=== PATIENT | male | born 1950 | race Caucasian/White ===

== ENCOUNTER 2018-09-11 14:06 | Inpatient (IN) | payer MEDICARE, SELFPAY ==
--- NOTE | 2018-09-11 14:35 | PCM.HP.STD ---
Problem List (1) Acute hyperactive opioid withdrawal delirium Status: Acute (2) Cocaine use disorder Status: Acute (3) Nicotine dependence, cigarettes, with withdrawal Status: Chronic History of Present Illness Date of Admission: 09/11/18 Chief Complaint: Opioid withdrawal syndrome The patient is a 68 year old M with history of chronic heroin use and dependence is being directly admitted through [facility] for medical stabilization of withdrawal syndrome. Patient is having hot and cold sensation, tremors and shaking, nasal congestion. Denies abdominal pain, diarrhea. Patient has chronic lumbar disc degeneration status post lumbar spine fusion. Patient also had left knee replacement, right leg pain surgery mostly after fracture in the past. He denies IV use of substance use including heroin or fentanyl. Denies history of incision and drainage. He has history of rheumatic fever at the childhood and has heart murmur. Past Medical History Past Medical History (Chronic Problems): Chronic Problems Nicotine dependence, cigarettes, with withdrawal (Chronic) Home Medications: Ambulatory Orders Medication Instructions Recorded NK 09/11/18 - *Family History Paternal History Items: Hypertension Review of Systems Constitutional: Reports: Chills, Weakness, Fatigue HEENT: Reports: Nasal Congestion. Denies: Head Aches, Sinus Congestion, Sinus Drainage Cardiovascular: Denies: Chest Pain, Palpitations Respiratory: Denies: Cough, Shortness of breath at rest, Sputum production Gastrointestinal: Reports: Nausea. Denies: Abdominal Pain, Vomiting Genitourinary: Denies: Dysuria Musculoskeletal: Reports: Back Pain, Muscle pain. Denies: Joint Pain, Joint Tenderness Skin: Denies: Rash, Wounds Neurological: Denies: Numbness, Tingling, Focal weakness Psychiatric: Reports: Anxiety. Denies: Depression, Homicidal Ideations, Suicidal Ideations Hematologic/ Lymphatic: Denies: Easy Bruising, Easy Bleeding VTE Information - Inpt Only VTE Present on Admission: No VTE Pharm Prophylaxis ordered?: Yes Patient Problems: Active and Suspected Problems Acute hyperactive opioid withdrawal delirium (Acute) Cocaine use disorder (Acute) - Physical Exam General: Alert, Oriented x3, Cooperative HEENT: Atraumatic, PERRLA, EOMI, Normocephalic Oral: Dry Mucosa Neck: Supple, No JVD, Negative Carotid Bruits Lungs: Clear to auscultation, No rhonchi, No wheeze, No rales, Diminished - Air entry is diminished Cardiovascular: Regular rate, Regular Rhythm, Normal S1, Normal S2, Murmur - Systolic and diastolic murmur present over mitral valve. Possible mitral stenosis plus mitral regurgitation Abdomen: Bowel Sounds Present, Soft, Non Tender, Non-Distended Extremities: No edema, Capillary Refill Less than 3 Seconds Skin: No rashes, No breakdown Musculoskeletal: No Tenderness to Palpation of Joints or Extremities, Arthritic Changes Lymphatic: No Cervical, Supraclavicular, or Inguinal Adenopathy Neurological: Cranial nerves II-XII grossly intact, Deep Tendon Reflexes 2+/4 and Symmetrical, Neuro grossly intact Psych/Mental Status: Normal Affect, Appropriate Assessment/Plan All Active Problems Acute hyperactive opioid withdrawal delirium (Acute) Cocaine use disorder (Acute) The patient is a 68 year old M with history of chronic heroin use and dependence is being directly admitted through [facility] for medical stabilization of withdrawal syndrome. Patient is having hot and cold sensation, tremors and shaking, nasal congestion. Denies abdominal pain, diarrhea. Patient has chronic lumbar disc degeneration status post lumbar spine fusion. Patient also had left knee replacement, right leg pain surgery mostly after fracture in the past. He denies IV use of substance use including heroin or fentanyl. Denies history of incision and drainage. He has history of rheumatic fever at the childhood and has heart murmur. 1. Acute opioid withdrawal secondary to heroin use and dependence: Patient claims using heroin 1 leave by snorting. Denies history of hepatitis C or HIV. Patient is being admitted by transfer. [facility] orders set for medical stabilization ordered. Labs ordered. 2. Cocaine use and dependence: Patient uses half grams cocaine, twice a month. Last use was 3 days ago 3. Chronic smoker 3. Chronic cigarette smoker with nicotine dependence: Patient smokes 5-6 cigarettes daily since age of 14. Denies history of COPD or chronic cough. 4. History of alcohol use in the past: Quit drinking alcohol in 2009 used to whiskey 1/5 of the bottle, started at age of 14. 5. Rheumatic heart disease: Patient has systolic and diastolic murmur over mitral area suggestive of possible mitral stenosis with regurgitation. We will need formal 2D echo as an outpatient for further evaluation. Currently, he is not symptomatic with shortness of breath or chest pain or features of heart failure. 6. Chronic lumbar disc degenerative disorder with left knee arthritis status post TKR: Stable. DVT prophylaxis: On Lovenox 40 subcu daily Code Visit Inpatient E&M: [id number] Init Hosp L3
[2018-09-11 14:39] VITALS: RESP 18; BMI 26.4
--- NOTE | 2018-09-11 14:40 | HP.PCM_ITS ---
Problem List (1) Acute hyperactive opioid withdrawal delirium Status: Acute (2) Cocaine use disorder Status: Acute (3) Nicotine dependence, cigarettes, with withdrawal Status: Chronic History of Present Illness Date of Admission: 09/11/18 Chief Complaint: Opioid withdrawal syndrome The patient is a 68 year old M with history of chronic heroin use and dependence is being directly admitted through [facility] for medical stabilization of withdrawal syndrome. Patient is having hot and cold sensation, tremors and shaking, nasal congestion. Denies abdominal pain, diarrhea. Patient has chronic lumbar disc degeneration status post lumbar spine fusion. Patient also had left knee replacement, right leg pain surgery mostly after fracture in the past. He denies IV use of substance use including heroin or fentanyl. Denies history of incision and drainage. He has history of rheumatic fever at the childhood and has heart murmur. Past Medical History Past Medical History (Chronic Problems): Chronic Problems Nicotine dependence, cigarettes, with withdrawal (Chronic) Home Medications: Ambulatory Orders Medication Instructions Recorded NK 09/11/18 - *Family History Paternal History Items: Hypertension Review of Systems Constitutional: Reports: Chills, Weakness, Fatigue HEENT: Reports: Nasal Congestion. Denies: Head Aches, Sinus Congestion, Sinus Drainage Cardiovascular: Denies: Chest Pain, Palpitations Respiratory: Denies: Cough, Shortness of breath at rest, Sputum production Gastrointestinal: Reports: Nausea. Denies: Abdominal Pain, Vomiting Genitourinary: Denies: Dysuria Musculoskeletal: Reports: Back Pain, Muscle pain. Denies: Joint Pain, Joint Tenderness Skin: Denies: Rash, Wounds Neurological: Denies: Numbness, Tingling, Focal weakness Psychiatric: Reports: Anxiety. Denies: Depression, Homicidal Ideations, Suicidal Ideations Hematologic/ Lymphatic: Denies: Easy Bruising, Easy Bleeding VTE Information - Inpt Only VTE Present on Admission: No VTE Pharm Prophylaxis ordered?: Yes Patient Problems: Active and Suspected Problems Acute hyperactive opioid withdrawal delirium (Acute) Cocaine use disorder (Acute) - Physical Exam General: Alert, Oriented x3, Cooperative HEENT: Atraumatic, PERRLA, EOMI, Normocephalic Oral: Dry Mucosa Neck: Supple, No JVD, Negative Carotid Bruits Lungs: Clear to auscultation, No rhonchi, No wheeze, No rales, Diminished - Air entry is diminished Cardiovascular: Regular rate, Regular Rhythm, Normal S1, Normal S2, Murmur - Systolic and diastolic murmur present over mitral valve. Possible mitral stenosis plus mitral regurgitation Abdomen: Bowel Sounds Present, Soft, Non Tender, Non-Distended Extremities: No edema, Capillary Refill Less than 3 Seconds Skin: No rashes, No breakdown Musculoskeletal: No Tenderness to Palpation of Joints or Extremities, Arthritic Changes Lymphatic: No Cervical, Supraclavicular, or Inguinal Adenopathy Neurological: Cranial nerves II-XII grossly intact, Deep Tendon Reflexes 2+/4 and Symmetrical, Neuro grossly intact Psych/Mental Status: Normal Affect, Appropriate Assessment/Plan All Active Problems Acute hyperactive opioid withdrawal delirium (Acute) Cocaine use disorder (Acute) The patient is a 68 year old M with history of chronic heroin use and dependence is being directly admitted through [facility] for medical stabilization of withdrawal syndrome. Patient is having hot and cold sensation, tremors and shaking, nasal congestion. Denies abdominal pain, diarrhea. Patient has chronic lumbar disc degeneration status post lumbar spine fusion. Patient also had left knee replacement, right leg pain surgery mostly after fracture in the past. He denies IV use of substance use including heroin or fentanyl. Denies history of incision and drainage. He has history of rheumatic fever at the childhood and has heart murmur. 1. Acute opioid withdrawal secondary to heroin use and dependence: Patient claims using heroin 1 leave by snorting. Denies history of hepatitis C or HIV. Patient is being admitted by transfer. [facility] orders set for medical stabilization ordered. Labs ordered. 2. Cocaine use and dependence: Patient uses half grams cocaine, twice a month. Last use was 3 days ago 3. Chronic smoker 3. Chronic cigarette smoker with nicotine dependence: Patient smokes 5-6 cigarettes daily since age of 14. Denies history of COPD or chronic cough. 4. History of alcohol use in the past: Quit drinking alcohol in 2009 used to whiskey 1/5 of the bottle, started at age of 14. 5. Rheumatic heart disease: Patient has systolic and diastolic murmur over mitral area suggestive of possible mitral stenosis with regurgitation. We will need formal 2D echo as an outpatient for further evaluation. Currently, he is not symptomatic with shortness of breath or chest pain or features of heart failure. 6. Chronic lumbar disc degenerative disorder with left knee arthritis status post TKR: Stable. DVT prophylaxis: On Lovenox 40 subcu daily Code Visit Inpatient E&M: 56394 Init Hosp L3
[2018-09-11 15:00] VITALS: BP 157/79; PULSE 53; RESP 16; TEMP 36.9
[2018-09-11] MEDS: chlordiazePOXIDE 25 MG Capsule PO ×3 (15:11→22:09)
[2018-09-11] MEDS: Buprenorphine HCl 2 MG TAB.SUBL 4 MG SL (16:08)
[2018-09-11 16:11] LABS: Absolute Lymphocyte Count 2.18 X10^3/ul (0.83-4.51); Absolute Neutrophil Count 6.4 X10^3/uL (2.0-7.7); Basophil# 0.07 X10^3/uL; Basophil% 0.7 % (0-1); Eosinophil# 1.16 X10^3/uL; Eosinophils% 11.3 % (0-5); Hematocrit 43.2 % (40-54); Lymphocyte # 2.18 X10^3/ul (4.0); Lymphocyte % 21.1 % (19-41); Mean Corp Hgb Conc 32.4 g/gl (32-36); Mean Corpuscular Hgb 27.8 pg (27.0-32.0); Mean Corpuscular Volume 85.7 fL (80-94); Monocyte# 0.46 X10^3/uL; Monocyte% 4.5 % (0-10); Neutrophil # 6.42 X10^3/uL (2.7-7.7); Neutrophil % 62.2 % (47-70); Platelet Count 411 K/mm3 (150-450); RBC Distribution Width SD 46.8 fl (35.1-43.9); Red Blood Count 5.04 M/mm3 (4.6-6.2); White Blood Count 10.3 K/mm3 (4.4-11.0)
[2018-09-11 16:13] LABS: POSITIVE COUNT NO; POSITIVE DIFFERENTIAL NO; POSITIVE MORPHOLOGY NO
[2018-09-11 16:16] LABS: ALB/GLOB Ratio 0.9 RATIO (0.9-2.4); AST(SGOT) 18 U/L (15-37); Alanine Aminotransfer ALT/SGPT 22 U/L (16-61); Albumin, Serum 3.8 g/dL (3.2-5.0); Alkaline Phosphatase 93 U/L (45-117); Amylase 34 U/L (25-115); Anion Gap 5 (5-15); BUN 13 mg/dL (7-18); BUN/Creat Ratio 12.1 RATIO (10-20); Chloride 105 mmol/L (98-107); Creatinine, Serum 1.07 mg/dL (0.70-1.30); EST Glomerular Filtration Rate 73 mL/min (>60); Est Glom Filt Rate - Afr Amer 88 mL/min (>60); Estimated Creatinine Clearance 71.52 ml/min; Globulin 4.1 g/dL (2.2-4.2); Glucose 141 mg/dL (74-106); Lipase 115 U/L (73-393); Protein, Total 7.9 g/dL (6.4-8.2); Sodium Level 137 mmol/L (136-145)
--- NOTE | 2018-09-11 16:32 | NEWVISION ---
Patient has appointment at [facility] post discharge scheduled on 09/23/18 @ 3:30pm. Patient transportation upon D/C is being provided by his daughter Kaila, .
[2018-09-11] MEDS: Pramipexole Di-HCl 0.25 MG Tablet PO (17:07)
[2018-09-11] MEDS: Ibuprofen 600 MG Tablet PO (17:07)
[2018-09-11] MEDS: Methocarbamol 750 MG Tablet PO ×2 (17:08→23:56)
[2018-09-11 17:19] LABS: Alcohol, Blood (Medical)-Serum < 3.0 mg/dL
[2018-09-11 17:31] LABS: Bacteria 0 SEEN /hpf (None Seen); Mucous, Urine 0 SEEN /hpf (<or=2+); Red Blood Cells-Urine 0 SEEN /hpf (0-5); Squamous Epithelial Cells - UA 0 SEEN /hpf (0-5)
[2018-09-11 17:32] LABS: Color, Urine Yellow (Yellow); Glucose, Dipstick Normal (Normal); Ketone-Dipstick Negative (Negative); Leukocyte Esterase-Dipstick 25 /ul (Negative); Nitrite-Dipstick Negative (Negative); Occult Blood-Urine Negative /ul (Negative); Protein-Dipstick 15 mg/dl (Negative); Urine Bilirubin Dipstick Negative (Negative); Urine Clarity Clear (Clear); Urine Urobilinogen Normal (Normal)
[2018-09-11] MEDS: Enoxaparin 40 MG/0.4 ML Syringe SC (17:40)
[2018-09-11] MEDS: cloNIDine HCl 0.1 MG Tablet PO (17:44)
[2018-09-11] MEDS: hydrOXYzine PAM 25 MG Capsule 50 MG PO ×2 (17:44→23:56)
[2018-09-11 17:48] LABS: White Blood Cells 0-5 SEEN /hpf (0-5)
[2018-09-11 18:00] VITALS: BP 134/82; PULSE 59; RESP 18; TEMP 36.8
[2018-09-11 20:29] VITALS: BP 116/66; PULSE 57; RESP 20; TEMP 36.7
[2018-09-11] MEDS: Acetaminophen 500 MG Tablet PO (20:39)
[2018-09-11] MEDS: Mag Hydrox/Al Hydrox/Simeth 30 ML UDC PO (20:39)
[2018-09-11] MEDS: Ondansetron ODT 4 MG Tablet PO (20:39)
[2018-09-11] MEDS: Dicyclomine 10 MG Capsule 20 MG PO (20:39)
[2018-09-11] MEDS: hydrOXYzine 50 MG/ML Vial IM (20:40)
[2018-09-11] MEDS: QUEtiapine 25 MG Tablet PO (20:40)
[2018-09-11] MEDS: traZODone 50 MG Tablet PO (22:10)
[2018-09-11 23:54] VITALS: BP 146/58; PULSE 51; RESP 18; TEMP 36.4
[2018-09-11] MEDS: Buprenorphine HCl 2 MG TAB.SUBL SL (23:56)
[2018-09-12 02:59] VITALS: BP 120/73; PULSE 53; RESP 16; TEMP 36.6
[2018-09-12] MEDS: QUEtiapine 25 MG Tablet PO (03:01)
[2018-09-12] MEDS: Mag Hydrox/Al Hydrox/Simeth 30 ML UDC PO (03:01)
[2018-09-12] MEDS: chlordiazePOXIDE 25 MG Capsule PO ×3 (03:01→10:23)
[2018-09-12 06:02] VITALS: BP 105/61; PULSE 47; RESP 16; TEMP 36.4
[2018-09-12] MEDS: hydrOXYzine PAM 25 MG Capsule 50 MG PO (06:03)
[2018-09-12] MEDS: Pramipexole Di-HCl 0.25 MG Tablet PO (06:03)
--- NOTE | 2018-09-12 08:45 | PCM.PROGNOTE ---
Patient Problems: Active and Suspected Problems Acute hyperactive opioid withdrawal delirium (Acute) Cocaine use disorder (Acute) Subjective: The patient is a 68-year-old male with history of opioid dependence and cocaine abuse who was admitted to the [facility] at [facility] on 09/11/2018 for medical stabilization for acute withdrawal from heroin. Past medical history is significant for rheumatic fever as a child, chronic lumbar disc degeneration with lumbar fusion, chronic R leg pain after a fracture and tobacco dependence. All events of the past 24 hours been reviewed. He has been afebrile since admission Vital signs are stable. He is bradycardic All labs personally reviewed. Random glucose is high at 141. He started using heroin about 1 year ago when his orthopedic doctor would no longer prescribe him Vicodin or Percocet. Admits to snorting 0.5 GM of heroin at night. He has no PCP. He has no plan for what he is going to do at [place]. When I asked him how he is going to manage his pain he had no idea but did tell me that Tylenol and Motrin does not even take care of a BOLTON. Has never been in rehab before. - Physical Exam General: Alert, Oriented x3, Cooperative, No apparent distress, Well developed, Well nourished HEENT: Atraumatic, PERRLA, Normocephalic Oral: Moist Mucosa Neck: Supple, No JVD, Negative Carotid Bruits Lungs: Clear to auscultation, Diminished Cardiovascular: Regular rate, Regular Rhythm, Normal S1, Normal S2, Murmur, No Gallop Abdomen: Bowel Sounds Present, Soft, Non Tender, Non-Distended Extremities: No clubbing, No cyanosis, No edema Skin: No rashes, No breakdown Neurological: Cranial nerves II-XII grossly intact, Neuro grossly intact Psych/Mental Status: Appropriate, Flat Affect Vital Signs Temp Pulse Resp BP 97.6 F L 47 L 16 105/61 09/12/18 06:02 09/12/18 06:02 09/12/18 06:02 09/12/18 06:02 Oxygen Delivery Method Room Air Weight: 195 lb Body Mass Index (BMI) 26.4 Intake and Output for Last 24 Hours 09/10/18 09/11/18 09/12/18 23:59 23:59 23:59 Intake Total 1100 / 1100 200 / 200 Balance 1100 / 1100 200 / 200 Laboratory Tests Past 24 Hrs 09/11/18 09/11/18 09/11/18 15:30 15:50 15:50 WBC 10.3 RBC 5.04 Hgb 14.0 Hct 43.2 MCV 85.7 MCH 27.8 MCHC 32.4 RDW 15.0 H RDW Differential 46.8 H Plt Count 411 MPV 10.0 Immature Gran % (Auto) 0.200 Neut % (Auto) 62.2 Lymph % (Auto) 21.1 [place] % (Auto) 4.5 Eos % (Auto) 11.3 H Baso % (Auto) 0.7 Absolute Neuts (auto) 6.4 Absolute Lymphs (auto) 2.18 Total Counted Not Reportable PT 13.0 INR 1.0 Sodium Potassium Chloride Carbon Dioxide Anion Gap BUN Creatinine Estim Creat Clear Calc Est GFR (MDRD) Af Amer Est GFR (MDRD) Non-Af BUN/Creatinine Ratio Glucose Calcium Total Bilirubin AST ALT Alkaline Phosphatase Total Protein Albumin Globulin Albumin/Globulin Ratio Amylase Lipase Urine Color Yellow Urine Clarity Clear Urine pH 7.0 Ur Specific [place] 1.010 Urine Protein 15 H Urine Glucose (UA) Normal Urine Ketones Negative Urine Occult Blood Negative Urine Nitrite Negative Urine Bilirubin Negative Urine Urobilinogen Normal Ur Leukocyte Esterase 25 H Urine RBC 0 SEEN Urine WBC 0-5 SEEN Ur Squamous Epith Cells 0 SEEN Urine Bacteria 0 SEEN Urine Mucus 0 SEEN Ethyl Alcohol 09/11/18 09/11/18 15:50 15:50 WBC RBC Hgb Hct MCV MCH MCHC RDW RDW Differential Plt Count MPV Immature Gran % (Auto) Neut % (Auto) Lymph % (Auto) [place] % (Auto) Eos % (Auto) Baso % (Auto) Absolute Neuts (auto) Absolute Lymphs (auto) Total Counted PT INR Sodium 137 Potassium 4.0 Chloride 105 Carbon Dioxide 27.0 Anion Gap 5 BUN 13 Creatinine 1.07 Estim Creat Clear Calc 71.52 Est GFR (MDRD) Af Amer 88 Est GFR (MDRD) Non-Af 73 BUN/Creatinine Ratio 12.1 Glucose 141 H Calcium 9.0 Total Bilirubin 0.50 AST 18 ALT 22 Alkaline Phosphatase 93 Total Protein 7.9 Albumin 3.8 Globulin 4.1 Albumin/Globulin Ratio 0.9 Amylase 34 Lipase 115 Urine Color Urine Clarity Urine pH Ur Specific [place] Urine Protein Urine Glucose (UA) Urine Ketones Urine Occult Blood Urine Nitrite Urine Bilirubin Urine Urobilinogen Ur Leukocyte Esterase Urine RBC Urine WBC Ur Squamous Epith Cells Urine Bacteria Urine Mucus Ethyl Alcohol < 3.0 Medical Necessity - Tobacco Use Smoking Status: Current every day smoker Tobacco Use: Cigarettes Assessment/Plan All Active Problems Acute hyperactive opioid withdrawal delirium (Acute) Cocaine use disorder (Acute) Impressions 1. Acute opiate withdrawal 2. Narcotic dependence-snorts approximately 0.5 g of heroin nightly 3. Cocaine use/dependence 4. Tobacco dependence 5. Former history of alcoholism-quit in 2009 6. History of rheumatic fever with a murmur 7. Chronic pain secondary to chronic lumbar disc degenerative disorder and left knee arthritis. Continue [facility] protocol for acute opiate withdrawal Per the [facility] note he [facility] appointment [facility]2018 at 3:30 PM. Will need and OP ECHO to better evaluate the MM - he lives in [place] and I advised him to find a PCP to order an ECHO and provide routine health care Code Visit Inpatient E&M: [id number] Subs Hosp L2
--- NOTE | 2018-09-12 08:53 | PN_ITS ---
Patient Problems: Active and Suspected Problems Acute hyperactive opioid withdrawal delirium (Acute) Cocaine use disorder (Acute) Subjective: The patient is a 68-year-old male with history of opioid dependence and cocaine abuse who was admitted to the [facility] program at [facility] on 09/11/2018 for medical stabilization for acute withdrawal from heroin. Past medical history is significant for rheumatic fever as a child, chronic lumbar disc degeneration with lumbar fusion, chronic R leg pain after a fracture and tobacco dependence. All events of the past 24 hours been reviewed. He has been afebrile since admission Vital signs are stable. He is bradycardic All labs personally reviewed. Random glucose is high at 141. He started using heroin about 1 year ago when his orthopedic doctor would no longer prescribe him Vicodin or Percocet. Admits to snorting 0.5 GM of heroin at night. He has no PCP. He has no plan for what he is going to do at [place]. When I asked him how he is going to manage his pain he had no idea but did tell me that Tylenol and Motrin does not even take care of a BOLTON. Has never been in rehab before. - Physical Exam General: Alert, Oriented x3, Cooperative, No apparent distress, Well developed, Well nourished HEENT: Atraumatic, PERRLA, Normocephalic Oral: Moist Mucosa Neck: Supple, No JVD, Negative Carotid Bruits Lungs: Clear to auscultation, Diminished Cardiovascular: Regular rate, Regular Rhythm, Normal S1, Normal S2, Murmur, No Gallop Abdomen: Bowel Sounds Present, Soft, Non Tender, Non-Distended Extremities: No clubbing, No cyanosis, No edema Skin: No rashes, No breakdown Neurological: Cranial nerves II-XII grossly intact, Neuro grossly intact Psych/Mental Status: Appropriate, Flat Affect Vital Signs Temp Pulse Resp BP 97.6 F L 47 L 16 105/61 09/12/18 06:02 09/12/18 06:02 09/12/18 06:02 09/12/18 06:02 Oxygen Delivery Method Room Air Weight: 195 lb Body Mass Index (BMI) 26.4 Intake and Output for Last 24 Hours 09/10/18 09/11/18 09/12/18 23:59 23:59 23:59 Intake Total 1100 / 1100 200 / 200 Balance 1100 / 1100 200 / 200 Laboratory Tests Past 24 Hrs 09/11/18 09/11/18 09/11/18 15:30 15:50 15:50 WBC 10.3 RBC 5.04 Hgb 14.0 Hct 43.2 MCV 85.7 MCH 27.8 MCHC 32.4 RDW 15.0 H RDW Differential 46.8 H Plt Count 411 MPV 10.0 Immature Gran % (Auto) 0.200 Neut % (Auto) 62.2 Lymph % (Auto) 21.1 [place] % (Auto) 4.5 Eos % (Auto) 11.3 H Baso % (Auto) 0.7 Absolute Neuts (auto) 6.4 Absolute Lymphs (auto) 2.18 Total Counted Not Reportable PT 13.0 INR 1.0 Sodium Potassium Chloride Carbon Dioxide Anion Gap BUN Creatinine Estim Creat Clear Calc Est GFR (MDRD) Af Amer Est GFR (MDRD) Non-Af BUN/Creatinine Ratio Glucose Calcium Total Bilirubin AST ALT Alkaline Phosphatase Total Protein Albumin Globulin Albumin/Globulin Ratio Amylase Lipase Urine Color Yellow Urine Clarity Clear Urine pH 7.0 Ur Specific [place] 1.010 Urine Protein 15 H Urine Glucose (UA) Normal Urine Ketones Negative Urine Occult Blood Negative Urine Nitrite Negative Urine Bilirubin Negative Urine Urobilinogen Normal Ur Leukocyte Esterase 25 H Urine RBC 0 SEEN Urine WBC 0-5 SEEN Ur Squamous Epith Cells 0 SEEN Urine Bacteria 0 SEEN Urine Mucus 0 SEEN Ethyl Alcohol 09/11/18 09/11/18 15:50 15:50 WBC RBC Hgb Hct MCV MCH MCHC RDW RDW Differential Plt Count MPV Immature Gran % (Auto) Neut % (Auto) Lymph % (Auto) [place] % (Auto) Eos % (Auto) Baso % (Auto) Absolute Neuts (auto) Absolute Lymphs (auto) Total Counted PT INR Sodium 137 Potassium 4.0 Chloride 105 Carbon Dioxide 27.0 Anion Gap 5 BUN 13 Creatinine 1.07 Estim Creat Clear Calc 71.52 Est GFR (MDRD) Af Amer 88 Est GFR (MDRD) Non-Af 73 BUN/Creatinine Ratio 12.1 Glucose 141 H Calcium 9.0 Total Bilirubin 0.50 AST 18 ALT 22 Alkaline Phosphatase 93 Total Protein 7.9 Albumin 3.8 Globulin 4.1 Albumin/Globulin Ratio 0.9 Amylase 34 Lipase 115 Urine Color Urine Clarity Urine pH Ur Specific [place] Urine Protein Urine Glucose (UA) Urine Ketones Urine Occult Blood Urine Nitrite Urine Bilirubin Urine Urobilinogen Ur Leukocyte Esterase Urine RBC Urine WBC Ur Squamous Epith Cells Urine Bacteria Urine Mucus Ethyl Alcohol < 3.0 Medical Necessity - Tobacco Use Smoking Status: Current every day smoker Tobacco Use: Cigarettes Assessment/Plan All Active Problems Acute hyperactive opioid withdrawal delirium (Acute) Cocaine use disorder (Acute) Impressions 1. Acute opiate withdrawal 2. Narcotic dependence-snorts approximately 0.5 g of heroin nightly 3. Cocaine use/dependence 4. Tobacco dependence 5. Former history of alcoholism-quit in 2009 6. History of rheumatic fever with a murmur 7. Chronic pain secondary to chronic lumbar disc degenerative disorder and left knee arthritis. Continue [facility] protocol for acute opiate withdrawal Per the [facility] note he [facility] appointment with [facility] on [facility]/2018 at 3:30 PM. Will need and OP ECHO to better evaluate the MM - he lives in [place] and I advised him to find a PCP to order an ECHO and provide routine health care Code Visit Inpatient E&M: [id number] Subs Hosp L2
[2018-09-12 10:00] VITALS: BP 118/66; PULSE 52; RESP 12; TEMP 36.7
[2018-09-12] MEDS: Buprenorphine HCl 2 MG TAB.SUBL SL ×3 (10:12→23:47)
[2018-09-12] MEDS: Enoxaparin 40 MG/0.4 ML Syringe SC (10:18)
[2018-09-12 16:00] VITALS: BP 118/69; PULSE 48; RESP 14; TEMP 36.3
[2018-09-12 23:40] VITALS: BP 130/75; PULSE 53; RESP 18; TEMP 36.4
[2018-09-12] MEDS: traZODone 50 MG Tablet PO (23:47)
[2018-09-13 06:00] VITALS: BP 107/73; PULSE 61; RESP 16; TEMP 36.5
[2018-09-13 08:28] VITALS: BP 107/63; PULSE 58; RESP 18; TEMP 36.4
[2018-09-13] MEDS: Buprenorphine HCl 2 MG TAB.SUBL SL ×2 (08:33→20:54)
--- NOTE | 2018-09-13 11:02 | PCM.PROGNOTE ---
Patient Problems: Active and Suspected Problems Acute hyperactive opioid withdrawal delirium (Acute) Cocaine use disorder (Acute) Subjective: All events in the past 24 hours been reviewed. He is afebrile with stable vital signs. Tells me he slept well last night. He denies nausea, vomiting, diaphoresis, tremors, restless leg. Objective: PHYSICAL EXAM: GENERAL: alert, oriented X 3, Cooperative, NAD ORAL: moist mucosa, no mucosal lesions NECK: No JVD, supple, trachea midline LUNGS: CTA, symmetric chest expansion HEART: RRR, Normal S1 and S2, no rub, no gallop ABDOMEN: soft, NT, ND, BS present, no guarding with palpation EXTREMITIES: no edema, no cyanosis, no calf tenderness SKIN: No rashes, no breakdown NEUROLOGIC: no focal neurologic deficits PSYCH: appropriate, normal affect, pleasant - Physical Exam Vital Signs Temp Pulse Resp BP 97.5 F L 58 L 18 107/63 09/13/18 08:28 09/13/18 08:28 09/13/18 08:28 09/13/18 08:28 Oxygen Delivery Method Room Air Weight: 195 lb Body Mass Index (BMI) 26.4 Intake and Output for Last 24 Hours 09/11/18 09/12/18 09/13/18 23:59 23:59 23:59 Intake Total 1100 / 1100 200 / 200 867 / 867 Balance 1100 / 1100 200 / 200 867 / 867 Medical Necessity - Tobacco Use Smoking Status: Current every day smoker Tobacco Use: Cigarettes Assessment/Plan All Active Problems Acute hyperactive opioid withdrawal delirium (Acute) Cocaine use disorder (Acute) Impressions 1. Acute opiate withdrawal 2. Narcotic dependence-snorts approximately 0.5 g of heroin nightly 3. Cocaine use/dependence 4. Tobacco dependence 5. Former history of alcoholism-quit in 2009 6. History of rheumatic fever with a murmur 7. Chronic pain secondary to chronic lumbar disc degenerative disorder and left knee arthritis. He is starting to have some back and knee pain with ambulation and is now agreeable to a NSAID. Celebrex 200 mg BID for the next 3-5 days and then decrease to once daily Continue [facility] program for acute opiate withdrawal. Discharge tomorrow Code Visit Inpatient E&M: [id number] Subs Hosp L2
[2018-09-13] MEDS: Celecoxib 200 MG Capsule PO ×2 (12:20→20:54)
[2018-09-13 14:00] VITALS: BP 102/67; PULSE 58; RESP 16; TEMP 36.9
[2018-09-13] MEDS: Acetaminophen 500 MG Tablet PO (15:06)
[2018-09-13] MEDS: traZODone 50 MG Tablet PO (20:54)
[2018-09-13 20:56] VITALS: BP 135/73; PULSE 55; RESP 16; TEMP 36.6
[2018-09-14 06:00] VITALS: BP 159/94; PULSE 47; RESP 16; TEMP 36.4
[2018-09-14] MEDS: Methocarbamol 750 MG Tablet PO (06:36)
[2018-09-14] MEDS: Ibuprofen 600 MG Tablet PO (06:36)
[2018-09-14 08:42] VITALS: BP 118/75; PULSE 73; RESP 18; TEMP 36.4
[2018-09-14] MEDS: Buprenorphine HCl 2 MG TAB.SUBL SL (08:50)
[2018-09-14] MEDS: Celecoxib 200 MG Capsule PO (08:51)
--- NOTE | 2018-09-14 09:20 | PCM.DC ---
- Discharge Diagnoses Current Active Problems: Current Active and Chronic Problems Acute hyperactive opioid withdrawal delirium (Acute) Cocaine use disorder (Acute) Nicotine dependence, cigarettes, with withdrawal (Chronic) You will use the following diet at home:: No restrictions Your food should be the consistency of: Regular Your liquids should be the consistency of: Regular/Thin Discharge Activity: Return to Normal Activity Call your doctor if you observe: Fever of 101 or Higher, Shortness of breath, Dizziness, Swelling in the ankles, Chest pain, Calf discomfort Additional Instructions: 1. The Celebrex is both a pain reliever and a anti-inflammatory. You will take it twice a day for the next 3 days and then decrease to once a day. Always take Celebrex with food. You must take this every day to get the maximum benefit and it can take up to 4 weeks to get the most benefit. [facility] who can write you prescriptions. If you continue to have pain while taking the Celebrex you can take Tylenol 1,000 mg every 8 hours as needed for pain. There is an over the counter cream at the pharmacy called Zostrix cream and this is a topical agent that can help with pain control also. It is like a liniment. 2. I have given you a prescription for a 45 GM tube of betamethasone cream........apply it twice a day to the areas involved with psoriasis. Allergies/Adverse Reactions: Allergies No Known Allergies Allergy (Verified 09/11/18 14:42) Medications to take at Discharge Betamethasone Valerate 45 gm TP BID #1 cream..g. 09/14/18 Celecoxib [Celebrex] 200 mg PO DAILY #34 cap 09/14/18 The following prescriptions were given: Celecoxib [Celebrex] 200 mg PO DAILY #34 cap Betamethasone Valerate 45 gm TP BID #1 cream..g. Primary Care Physician: Care Physician,No Primary [Primary Care Provider] - Please follow up with your Primary Care Physician in: find a PCP in [place] and schedule an appt within the next 2-3 weeks Test Results: Test results from this visit will be discussed in further detail at your follow-up appointment, if applicable. Please Follow Up With: [facility] When: 09/23/18 at 3:30 PM Proposed Discharge Date: 09/14/18
--- NOTE | 2018-09-14 09:26 | DCINST_ITS ---
- Discharge Diagnoses Current Active Problems: Current Active and Chronic Problems Acute hyperactive opioid withdrawal delirium (Acute) Cocaine use disorder (Acute) Nicotine dependence, cigarettes, with withdrawal (Chronic) You will use the following diet at home:: No restrictions Your food should be the consistency of: Regular Your liquids should be the consistency of: Regular/Thin Discharge Activity: Return to Normal Activity Call your doctor if you observe: Fever of 101 or Higher, Shortness of breath, Dizziness, Swelling in the ankles, Chest pain, Calf discomfort Additional Instructions: 1. The Celebrex is both a pain reliever and a anti- inflammatory. You will take it twice a day for the next 3 days and then decrease to once a day. Always take Celebrex with food. You must take this every day to get the maximum benefit and it can take up to 4 weeks to get the most benefit. Find yourself a [facility] doctor who can write you prescriptions. If you continue to have pain while taking the Celebrex you can take Tylenol 1,000 mg every 8 hours as needed for pain. There is an over the counter cream at the pharmacy called Zostrix cream and this is a topical agent that can help with pain control also. It is like a liniment. 2. I have given you a prescription for a 45 GM tube of betamethasone cream........apply it twice a day to the areas involved with psoriasis. Allergies/Adverse Reactions: Allergies No Known Allergies Allergy (Verified 09/11/18 14:42) Medications to take at Discharge Betamethasone Valerate 45 gm TP BID #1 cream..g. 09/14/18 Celecoxib [Celebrex] 200 mg PO DAILY #34 cap 09/14/18 The following prescriptions were given: Celecoxib [Celebrex] 200 mg PO DAILY #34 cap Betamethasone Valerate 45 gm TP BID #1 cream..g. Primary Care Physician: Care Physician,No Primary [Primary Care Provider] - Please follow up with your Primary Care Physician in: find a PCP in [place] and schedule an appt within the next 2-3 weeks Test Results: Test results from this visit will be discussed in further detail at your follow- up appointment, if applicable. Please Follow Up With: [facility] When: 09/23/18 at 3:30 PM Proposed Discharge Date: 09/14/18
--- NOTE | 2018-09-14 09:29 | DS.PCM_ITS ---
Discharge Date and Diagnosis - Problem List Patient Problems: Active and Suspected Problems Acute hyperactive opioid withdrawal delirium (Acute) Cocaine use disorder (Acute) Date of Admission: 09/11/18 Date of Discharge: 09/14/18 - Primary Discharge Diagnosis Active and Suspected Problems Acute hyperactive opioid withdrawal delirium (Acute) - Secondary Discharge Diagnosis Chronic Problems Opiate dependence (Chronic) Psoriasis (Chronic) Nicotine dependence, cigarettes, with withdrawal (Chronic) Cocaine use disorder (Acute) Hospital Course and Treatment Imaging Results: Laboratory Tests 09/11/18 09/11/18 09/11/18 Range/Units 15:50 15:50 15:50 WBC (4.4-11.0) K/mm3 RBC (4.6-6.2) M/mm3 Hgb (13.0-16.5) g/dl Hct (40-54) % MCV (80-94) fL MCH (27.0-32.0) pg MCHC (32-36) g/gl RDW (11.6-14.6) % RDW Differential (35.1-43.9) fl Plt Count (150-450) K/mm3 MPV (6.2-12.0) fl Immature Gran % (Auto) (0.0-0.9) % Neut % (Auto) (47-70) % Lymph % (Auto) (19-41) % Eagle % (Auto) (0-10) % Eos % (Auto) (0-5) % Baso % (Auto) (0-1) % Absolute Neuts (auto) (2.0-7.7) X10^3/uL Absolute Lymphs (auto) (0.83-4.51) X10^3/ul Total Counted PT 13.0 (11.7-14.9) SECONDS INR 1.0 Sodium 137 (136-145) mmol/L Potassium 4.0 (3.5-5.1) mmol/L Chloride 105 (98-107) mmol/L Carbon Dioxide 27.0 (21.0-32.0) mmol/L Anion Gap 5 (5-15) BUN 13 (7-18) mg/dL Creatinine 1.07 (0.70-1.30) mg/dL Estim Creat Clear Calc 71.52 ml/min Est GFR (MDRD) Af Amer 88 (>60) mL/min Est GFR (MDRD) Non-Af 73 (>60) mL/min BUN/Creatinine Ratio 12.1 (10-20) RATIO Glucose 141 H (74-106) mg/dL Calcium 9.0 (8.5-10.1) mg/dL Total Bilirubin 0.50 (0.20-1.00) mg/dL AST 18 (15-37) U/L ALT 22 (16-61) U/L Alkaline Phosphatase 93 (45-117) U/L Total Protein 7.9 (6.4-8.2) g/dL Albumin 3.8 (3.2-5.0) g/dL Globulin 4.1 (2.2-4.2) g/dL Albumin/Globulin Ratio 0.9 (0.9-2.4) RATIO Amylase 34 (25-115) U/L Lipase 115 (73-393) U/L Urine Color (Yellow) Urine Clarity (Clear) Urine pH (5.0 - 8.0) Ur Specific [place] (1.002-1.030) Urine Protein (Negative) mg/dl Urine Glucose (UA) (Normal) mg/dl Urine Ketones (Negative) mg/dl Urine Occult Blood (Negative) /ul Urine Nitrite (Negative) Urine Bilirubin (Negative) mg/dL Urine Urobilinogen (Normal) mg/dl Ur Leukocyte Esterase (Negative) /ul Urine RBC (0-5) /hpf Urine WBC (0-5) /hpf Ur Squamous Epith Cells (0-5) /hpf Urine Bacteria (None Seen) /hpf Urine Mucus (<or=2+) /hpf Ethyl Alcohol < 3.0 mg/dL 09/11/18 09/11/18 Range/Units 15:50 15:30 WBC 10.3 (4.4-11.0) K/mm3 RBC 5.04 (4.6-6.2) M/mm3 Hgb 14.0 (13.0-16.5) g/dl Hct 43.2 (40-54) % MCV 85.7 (80-94) fL MCH 27.8 (27.0-32.0) pg MCHC 32.4 (32-36) g/gl RDW 15.0 H (11.6-14.6) % RDW Differential 46.8 H (35.1-43.9) fl Plt Count 411 (150-450) K/mm3 MPV 10.0 (6.2-12.0) fl Immature Gran % (Auto) 0.200 (0.0-0.9) % Neut % (Auto) 62.2 (47-70) % Lymph % (Auto) 21.1 (19-41) % Eagle % (Auto) 4.5 (0-10) % Eos % (Auto) 11.3 H (0-5) % Baso % (Auto) 0.7 (0-1) % Absolute Neuts (auto) 6.4 (2.0-7.7) X10^3/uL Absolute Lymphs (auto) 2.18 (0.83-4.51) X10^3/ul Total Counted Not Reportable PT (11.7-14.9) SECONDS INR Sodium (136-145) mmol/L Potassium (3.5-5.1) mmol/L Chloride (98-107) mmol/L Carbon Dioxide (21.0-32.0) mmol/L Anion Gap (5-15) BUN (7-18) mg/dL Creatinine (0.70-1.30) mg/dL Estim Creat Clear Calc ml/min Est GFR (MDRD) Af Amer (>60) mL/min Est GFR (MDRD) Non-Af (>60) mL/min BUN/Creatinine Ratio (10-20) RATIO Glucose (74-106) mg/dL Calcium (8.5-10.1) mg/dL Total Bilirubin (0.20-1.00) mg/dL AST (15-37) U/L ALT (16-61) U/L Alkaline Phosphatase (45-117) U/L Total Protein (6.4-8.2) g/dL Albumin (3.2-5.0) g/dL Globulin (2.2-4.2) g/dL Albumin/Globulin Ratio (0.9-2.4) RATIO Amylase (25-115) U/L Lipase (73-393) U/L Urine Color Yellow (Yellow) Urine Clarity Clear (Clear) Urine pH 7.0 (5.0 - 8.0) Ur Specific [place] 1.010 (1.002-1.030) Urine Protein 15 H (Negative) mg/dl Urine Glucose (UA) Normal (Normal) mg/dl Urine Ketones Negative (Negative) mg/dl Urine Occult Blood Negative (Negative) /ul Urine Nitrite Negative (Negative) Urine Bilirubin Negative (Negative) mg/dL Urine Urobilinogen Normal (Normal) mg/dl Ur Leukocyte Esterase 25 H (Negative) /ul Urine RBC 0 SEEN (0-5) /hpf Urine WBC 0-5 SEEN (0-5) /hpf Ur Squamous Epith Cells 0 SEEN (0-5) /hpf Urine Bacteria 0 SEEN (None Seen) /hpf Urine Mucus 0 SEEN (<or=2+) /hpf Ethyl Alcohol mg/dL none Operations: None Procedures: None Summary of Care Provided: The patient is a 68 year old M with a past medical history of rheumatic fever as a child, tobacco dependence, chronic lumbar disc degeneration with lumbar fusion and chronic right leg pain who presented to the [facility] office on 09/11/2018 requesting inpatient admission for medical stabilization for acute withdrawal from heroin. Patient stated he had been snorting heroin for approximately 1 year and he started using heroin for pain control when his orthopedic doctor would no longer prescribe him Vicodin and Percocet. He also uses cocaine sporadically. CBC at admission was unremarkable. PT was within normal limits. BMP was unremarkable with the exception of a fasting glucose of 140.....he denied any hx of DM and also denied polyuria and polydipsia. 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 He was admitted to the hospital and the [facility] protocol for acute opiate withdrawal was initiated. The [facility] benefits representative set up an appt for him to follow up at [facility] on 09/23/18 at 3:30. His hospital course was uneventful. He was started on Celebrex for chronic pain. On the day of DC he asked me if I could prescribe him Methadone to help with pain. I told him no. He then asked if I would given him a prescription for Betamethasone cream to treat psoriasis and I was able to help him with this. After I left the room he asked the NA to to ask me if I could give him something to help him sleep. I again said no. I encouraged him to find a PCP in [place] and establish care. On the date of discharge she was afebrile with stable vital signs. His daughter is picking him up and transporting him back to [place]. - Physical Exam General: Alert, Oriented x3, Cooperative, No apparent distress, Well developed, Well nourished HEENT: Atraumatic, PERRLA, Normocephalic Oral: Moist Mucosa Neck: Supple, No JVD, Negative Carotid Bruits Lungs: Clear to auscultation, Diminished Cardiovascular: Regular rate, Regular Rhythm, Normal S1, Normal S2, systolic Murmur at the apex, No Gallop Abdomen: Bowel Sounds Present, Soft, Non Tender, Non-Distended Extremities: No clubbing, No cyanosis, No edema Skin: No rashes, No breakdown Neurological: Cranial nerves II-XII grossly intact, Neuro grossly intact Psych/Mental Status: Appropriate, Flat Affect This note was generated with [employer] dictation software. It may contain incorrect words, spelling, and punctuation that were not noted in checking the note before signing. Patient Problems: Active and Suspected Problems Acute hyperactive opioid withdrawal delirium (Acute) Cocaine use disorder (Acute) - Physical Exam Vital Signs Temp Pulse Resp BP 97.6 F L 73 18 118/75 09/14/18 08:42 09/14/18 08:42 09/14/18 08:42 09/14/18 08:42 Oxygen Delivery Method Room Air Weight: 195 lb Body Mass Index (BMI) 26.4 Intake and Output for Last 24 Hours 09/12/18 09/13/18 09/14/18 23:59 23:59 23:59 Intake Total 200 / 200 1107 / 1107 600 / 600 Balance 200 / 200 1107 / 1107 600 / 600 Discharge Activity: Return to Normal Activity Call your doctor if you observe: Fever of 101 or Higher, Shortness of breath, Dizziness, Swelling in the ankles, Chest pain, Calf discomfort Home Medications: Medications to take at Discharge Betamethasone Valerate 45 gm TP BID #1 cream..g. 09/14/18 Celecoxib [Celebrex] 200 mg PO DAILY #34 cap 09/14/18 Following Prescrptions Were Given to Patient: Celecoxib [Celebrex] 200 mg PO DAILY #34 cap Betamethasone Valerate 45 gm TP BID #1 cream..g. Primary Care Physician: Care Physician,No Primary [Primary Care Provider] - Please follow up with your Primary Care Physician in: find a PCP in [place] and schedule an appt within the next 2-3 weeks Please Follow Up With: [facility] When: 09/23/18 at 3:30 PM Disposition: Home Minutes spent on discharge:: 30 Patient Condition:: Stable Medical Necessity - Tobacco Use Smoking Status: Current every day smoker Tobacco Use: Cigarettes Meaningful Use Info Meaningful Use Diagnoses (Choose all that apply): None applicable Code Visit Inpatient E&M: 84856 Disch Hosp
--- NOTE | 2018-09-14 10:21 | NURSING ---
pt waiting on ride from daughter.
== END 2018-09-14 12:30 | disposition home or self-care (01) | DRG 897 ==
PROVIDERS: Admitting Provider Internal Medicine; Referring Provider Internal Medicine; Visit Provider Internal Medicine
DX: F11.23 Opioid dependence with withdrawal (principal); F17.210 Nicotine dependence, cigarettes, uncomplicated; M51.36 Other intervertebral disc degeneration, lumbar region; Z96.652 Presence of left artificial knee joint; I09.9 Rheumatic heart disease, unspecified; Z98.1 Arthrodesis status; F10.21 Alcohol dependence, in remission; G89.29 Other chronic pain; Z23 Encounter for immunization; L40.9 Psoriasis, unspecified
CPT/HCPCS: 36415; 80053; 80320; 81001; 82150; 83690; 85025; 85610; G0008; 90686; G0480